=== PATIENT | male | born 1950 | race Caucasian/White ===

== ENCOUNTER 2017-08-07 08:58 | Day surgery (SDC) | payer BC, OTHER ==
[~2017-08-07] VITALS: Ht 182.9 cm; Wt 72.6 kg
--- NOTE | ~2017-08-07 | OR ---
[facility] [address], [place] [address] Draft DATE OF OPERATION: 08/07/2017 SURGEON: Pablo Sarmiento MD PREOPERATIVE DIAGNOSIS: Left ear recurrent cancer. POSTOPERATIVE DIAGNOSIS: Left ear recurrent cancer. PROCEDURE: Excision of left ear lesions x2. ANESTHESIA: Local. 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 This was excised 10 years ago and again earlier this year, he has had recurrent lesion in this area and he was taken to the operating room for the above-mentioned procedure. OPERATIVE PROCEDURE AND FINDINGS: After informed consent, the patient was taken to the operating room, placed in the semi-sitting position, where monitoring was performed. The patient and procedure were verified. The left ear was sterilely prepped and draped. Examination of the vivian showed 2 ulcerated reddish lesions, one was in the medial portion of the vivian near the medial portion of the previous excision site, right near the opening of the ear canal inferior margin. This measured about a centimeter. There was also a second lesion out on the vivian more laterally and inferior to the previous excision site. This was again reddish, ulcerated, about a centimeter in diameter. The lesions were anesthetized with 1% lidocaine with epinephrine injection. The lesions were excised with elliptical pattern, a millimeter or 2 margins. The first one was labeled the ear canal. It was sent to pathology in formalin. The second was labeled vivian, again elliptical with a millimeter or 2 margins, sent to pathology in formalin. Hemostasis was obtained with needle point cautery. The wounds were closed after elevation of the edges, primarily with 5-0 interrupted nylon. The skin was cleansed. Neosporin was applied. The patient was then transported back to same-day surgery in good condition. COMPLICATIONS: PATIENT NAME: RAVIN GARDINER OPERATIVE REPORT DATE OF : 46 PHYSICIAN: PABLO SARMIENTO MD REPORT #: [id number] REPORT IS CONFIDENTIAL AND NOT TO BE RELEASED WITHOUT AUTHORIZATION [address], [place] [address] Draft No complications. BLOOD LOSS: Minimal. SPECIMEN: X2 to pathology. DRAINS: No drains. Pablo Sarmiento MD GC/MODL /[id number] PATIENT NAME: RAVIN GARDINER OPERATIVE REPORT DATE OF : 46 PHYSICIAN: PABLO SARMIENTO MD REPORT #: [id number] REPORT IS CONFIDENTIAL AND NOT TO BE RELEASED WITHOUT AUTHORIZATION
[~2017-08-07 08:58] MED LIST: ADVIL200 MG PO; ASPIR-LOW81 MG PO
--- NOTE | 2017-08-07 10:38 | NUR ---
PT RETURNED STRAIGHT FROM OR. PT DENIES PAIN AND NAUSEA. LOCAL ANESTHESIA ONLY, PT TOLERATING PO FLUIDS AND FOOD, DISCHAGE ORDER IN PLACE. BED RAILS UP. CALL LIGHT WITHIN REACH.
--- NOTE | 2017-08-07 11:15 | NUR ---
PT TOLERATING PO FOOD AND FLUID. PT AMBULATES WITHOUT DIFFICULT. PT REPORTING 0/10 PAIN AND DENIES NAUSEA. DISCHAGE INSTURCTIONS REVIEWED WITH PT. PT VERBALIZES UNDERSTANDING OF DISCHARGE INSTRUCTIONS. PT WALKS SELF FROM UNIT.
== END 2017-08-07 11:15 | disposition home or self-care (01) ==
LOC: DS 08:58 → OPS 08:58 → DS 11:00 → OPS 11:00
PROVIDERS: Otolaryngology
PROC: 09B Ear, Nose, Sinus, Excision (ICD-10-PCS; principal; 2017-08-07 11:00)
DX: C44.219 Basal cell carcinoma of skin of left ear and external auricular canal (principal); J30.9 Allergic rhinitis, unspecified; Z98.890 Other specified postprocedural states

== ENCOUNTER 2020-04-13 07:21 | Day surgery (SDC) | payer BC ==
[~2020-04-13] VITALS: Ht 182.9 cm; Wt 72.6 kg
--- NOTE | ~2020-04-13 | OR ---
[facility] [address] [place], [place] [address] Draft DATE OF OPERATION: 04/13/2020 SURGEON: Corrine Sarmiento MD PREOPERATIVE DIAGNOSIS: Left ear lesion. POSTOPERATIVE DIAGNOSIS: Left ear lesion. PROCEDURE: Excision of left ear lesion. ANESTHESIA: Local. PREOPERATIVE HISTORY: Mr. 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 He has had recurrence, treated with liquid nitrogen in the office. Persistent lesion has presented and he is being taken to the operating room for the above-mentioned procedures. PROCEDURE AND FINDINGS: After informed consent, the patient was taken to the operating room, placed in the semi-sitting position, where monitoring was performed. The patient and procedure verified. The left ear and neck were sterilely prepped and draped. Exam of the left ear showed a lesion superficially ulcerated reddish in the vivian and then a 2nd lesion upon the posterior surface of the tragus. After sterile prep and drape, 1% lidocaine with epi was injected in a field type block. Two separate lesions were excised separately in elliptical pattern, first in the vivian was labeled the posterior lesion, appeared to be completely excised and sent to pathology in formalin and that lesion was about 2 cm in length. The second lesion was on the posterior surface of the tragus, this was also about 2 cm, was excised in elliptical manner, anterior portion was excised separately as the tissue tore during resection. The suture was placed in the anterior margin of the anterior lesion posterior portion. Bleeding was minimal, controlled with needle point cautery. Hemostasis was verified. The lesions were then closed separately with 5-0 interrupted nylon. The skin was cleansed. Neosporin was applied. The patient was then transported back to same day in good condition. BLOOD LOSS: PATIENT NAME: TORO GARDINER OPERATIVE REPORT DATE OF : 46 REPORT #: [id number] PHYSICIAN: CORRINE SARMIENTO MD PCP: NO PRIMARY CARE PHYSICIAN REPORT IS CONFIDENTIAL AND NOT TO BE RELEASED WITHOUT AUTHORIZATION [address] [address] [facility] Minimal. SPECIMENS: 1. Posterior left ear. 2. Anterior left ear. 3. Anterior portion of anterior left ear. DRAINS: No drains. COMPLICATIONS: No complications. Corrine Sarmiento MD GC/MODL /[id number] Copies: ~ PATIENT NAME: TORO GARDINER OPERATIVE REPORT DATE OF : 46 REPORT #: [id number] PHYSICIAN: CORRINE SARMIENTO MD PCP: NO PRIMARY CARE PHYSICIAN REPORT IS CONFIDENTIAL AND NOT TO BE RELEASED WITHOUT AUTHORIZATION
--- NOTE | 2020-04-15 11:06 | PATH ---
[facility] [address], [place] [address] Signed SPECIMEN(S): A POSTERIOR LEFT EAR SPECIMEN(S): B ANTERIOR LEFT EAR SPECIMEN(S): C ANTERIOR ANTERIOR LEFT EAR SPECIMEN SOURCE: A. POSTERIOR LEFT EAR B. ANTERIOR LEFT EAR C. ANTERIOR ANTERIOR LEFT EAR CLINICAL HISTORY: Lesion left ear, probable basal cell carcinoma. Excision left ear lesion. FINAL PATHOLOGIC DIAGNOSIS: A. Skin, posterior left ear, biopsy: - Nodular basal cell carcinoma. - Margins of excision free of neoplasm. - Closest margin of excision is lateral, within less than 0.1 cm. B. Skin, anterior left ear, excision: - Nodular basal cell carcinoma. - Tumor size 0.4 x 0.4 x 0.1 (l x w x d). - Carcinoma present at both anterior and posterior margins. C. Skin, "anterior anterior left ear", biopsy: - Nodular basal cell carcinoma. - Carcinoma present at lateral tissue edge. LJA:cml:C1NR MICROSCOPIC EXAMINATION: Histologic sections of all submitted blocks are examined by light microscopy. These findings, together with the gross examination, support the pathologic diagnosis. GROSS DESCRIPTION: Three specimens are received in three containers, labeled "FM." A. The specimen, labeled "FM, A," and designated on the requisition "posterior left ear lesion," is received in formalin and consists of an unoriented elliptical skin fragment measuring 1.1 x 0.4 x 0.2 cm. The cutaneous surface is jiang and smooth with a 0.2 x 0.1 cm central depressed jiang lesion measuring 0.1 cm to the nearest margin. The specimen is inked, quadrisected, and entirely submitted in cassette A1. B. The specimen, labeled "FM, B," and designated on the requisition "anterior PATIENT NAME: TORO GARDINER PATHOLOGY DATE OF : 46 REPORT #: [id number] PHYSICIAN: ELIZABETH PATHOLOGY PCP: NO PRIMARY CARE PHYSICIAN REPORT IS CONFIDENTIAL AND NOT TO BE RELEASED WITHOUT AUTHORIZATION [facility] [address], [place] [address] Signed left ear lesion," is received in formalin and consists of a 0.9 x 0.7 x 0.2 cm oriented irregularly shaped skin ellipse. A suture is present and morataya the anterior margin, measures less than 0.1 cm to the nearest margin. The cutaneous surface contains a 0.4 x 0.3 cm hypopigmented lesion with partial crusted border measuring less than 0.1 cm from the sutured /designated anterior margin. The specimen is inked as follows: Anterior margin-blue; opposite margin-green; and deep margin-black. The specimen is quadrisected and entirely submitted sequentially in cassettes B1-B2. C. The specimen, labeled "FM, C," and designated on the requisition "anterior anterior left ear lesion," is received in formalin and consists of an unoriented jiang skin fragment measuring 0.5 x 0.3 x 0.3 cm. The cutaneous surface is jiang and smooth with off-center crusted area. Specimen is inked blue and entirely submitted in cassette C1. AT (under the direct supervision of a pathologist) The Gross Description was prepared using a voice recognition system. The report was reviewed for accuracy; however, sound-alike word errors, addition and/or deletions may occur. If there is any question about this report, please contact Client Services. PERFORMING LABORATORY: The technical component was performed by [employer], [address] [place] [id number] (Sewing Machine Attachment Tester: Telma Davila MD; CLIA# [id number]). Professional interpretation was performed by [employer], [facility], [address] [place] [address] (CLIA# [id number]). Diagnostician: Chris Eli MD Pathologist Diagnostician: Estella Prado MD Pathologist Electronically Signed 04/15/2020 Copies: ~ PATIENT NAME: TORO GARDINER PATHOLOGY DATE OF : 46 REPORT #: [id number] PHYSICIAN: [facility] PCP: NO PRIMARY CARE PHYSICIAN REPORT IS CONFIDENTIAL AND NOT TO BE RELEASED WITHOUT AUTHORIZATION
== END 2020-04-13 18:00 | disposition home or self-care (01) ==
LOC: DS 07:21 → OPS 07:21 → DS 10:00 → OPS 10:00
PROVIDERS: Otolaryngology
PROC: 0HB3XZZ Excision of Left Ear Skin, External Approach (ICD-10-PCS; principal; 2020-04-13 09:00)
DX: C44.219 Basal cell carcinoma of skin of left ear and external auricular canal (principal)

== ENCOUNTER 2021-02-08 08:55 | Day surgery (SDC) | payer BC, SELFPAY ==
[~2021-02-08] VITALS: Ht 182.9 cm; Wt 74.0 kg
--- NOTE | 2021-02-08 11:23 | NUR ---
PATIENT INSTRUCTED ON WOUND CARE, SIGNS AND SYMPTOMS OF INFECTION TO LEFT EAR INCISION. PATIENT VERBALIZED UNDERSTANDING OF ALL DISCHARGE INSTRUCTIONS AND FOLLOW UP APPOINTMENT WITH DR. WINSLOW.
--- NOTE | 2021-02-15 11:16 | OR ---
[facility] [address] [place], [place] [address] Signed DATE OF OPERATION: 02/08/2021 SURGEON: Pablo Sarmiento MD PREOPERATIVE DIAGNOSIS: Left ear lesion. POSTOPERATIVE DIAGNOSIS: Left ear lesion. PROCEDURE: Excision of left ear lesions. ANESTHESIA: Local. PREOPERATIVE HISTORY: Ravin is a 70-year-old man with history of left ear basal cell carcinoma in the past. He has several suspicious lesions which have recurred adjacent to the original excision site in the vivian and the retrotragal skin of the left ear. He has had these areas frozen several times in the office. The area has recurred with superficial ulceration, inflammation, and he is taken to the operating room for the above-mentioned procedures. OPERATIVE PROCEDURE AND FINDINGS: After informed consent, the patient was taken to the operating room, kept in his same-day gurney semi-sitting. Left ear was sterilely prepped and draped. The patient and procedure verified. The lesion in question. There were two lesions on the left ear, one on the posterior surface of the tragus measuring about a cm, this was superficially ulcerated, inflamed, reddish tissue. There was a smaller lesion in the posterior portion of the vivian measuring several mm. After sterile prep and drape, the injection was with 1% lidocaine with epi in a field type block, the 1st lesion post-tragal was excised with an elliptical excision measuring about 15 mm. The lesion was sent to pathology in formalin. The lesion appeared to be superficial not involving underlying cartilage. Some of the cartilage was excised to allow for ease of closure. Wound edges were elevated. The closure was then with 5-0 interrupted nylon. The 2nd lesion was excised sharply, measured about a cm in greatest diameter, the lesion was sent in formalin to pathology. The wound was closed with 5-0 interrupted nylon. The skin was cleansed, Neosporin ointment was applied. The patient was then transported back to same day in [facility] condition. No complications. Electronically Signed By: PABLO SARMIENTO MD 02/15/21 1116 PATIENT NAME: RAVIN GARDINER OPERATIVE REPORT DATE OF : 46 REPORT #: [id number] PHYSICIAN: PABLO SARMIENTO MD PCP: OTHER PCP REPORT IS CONFIDENTIAL AND NOT TO BE RELEASED WITHOUT AUTHORIZATION [address] [address] Signed BLOOD LOSS: Minimal. SPECIMEN: X2, left ear to pathology; first labeled, retrotragal and second was vivian. DRAINS: No drains. COMPLICATIONS: No complications. Pablo Sarmiento MD GC/MODL /[id number] Copies: ~ Electronically Signed By: PABLO SARMIENTO MD 02/15/21 1116 PATIENT NAME: RAVIN GARDINER OPERATIVE REPORT DATE OF : 46 REPORT #: [id number] PHYSICIAN: PABLO SARMIENTO MD PCP: OTHER PCP REPORT IS CONFIDENTIAL AND NOT TO BE RELEASED WITHOUT AUTHORIZATION
== END 2021-02-08 11:16 | disposition home or self-care (01) ==
LOC: DS 08:55
PROVIDERS: ATTEND Otolaryngology
PROC: 0HB3XZZ Excision of Left Ear Skin, External Approach (ICD-10-PCS; principal; 2021-02-08 11:00)
DX: C44.219 Basal cell carcinoma of skin of left ear and external auricular canal (principal)

== ENCOUNTER 2022-03-28 08:53 | Day surgery (SDC) | payer BC ==
[~2022-03-28] VITALS: Ht 182.9 cm; Wt 74.0 kg
--- NOTE | ~2022-03-28 | OR ---
[facility] [address], [place] [address] Draft DATE OF OPERATION: 03/28/2022 SURGEON: Pablo Sarmiento MD PREOPERATIVE DIAGNOSIS: Recurrent left ear skin cancer. POSTOPERATIVE DIAGNOSIS: Recurrent left ear skin cancer. PROCEDURE: Excision of left ear lesion x2. ANESTHESIA: Local standby. PREOPERATIVE HISTORY: Ravin is a 71-year-old man with a history of left ear cancer skin cancer. He has had multiple excisions mainly in the vivian. Recurrent areas have been treated in the office with freezing. He has one area today that has not responded and has been an obvious recurrence of basal cell carcinoma and he is taken to the operating room for the above-mentioned procedures. PROCEDURE AND FINDINGS: After informed consent, the patient was taken to the operating room, placed in the semi-sitting position. Monitoring was performed. The left ear was sterilely prepped and draped. Exam of the ear showed crusted lesion on the left vivian just on the posterior surface of the tragus. There was also a granular lesion in the bowl of the vivian posterior to this, which was suspicious. 1% lidocaine with epinephrine was injected in a field type block. The two separate lesions were removed separately. The posterior lesion was removed with sharp dissection with a mm margin. This was sent in formalin to pathology labeled posterior conchal left ear lesion. The excision site was about 5 mm. Hemostasis was obtained with needlepoint cautery. This wound was left open. The second lesion more anterior than the first was basically on the posterior surface of the tragus, it measured about a cm crusted. This lesion was also excised sharply with a millimeter or two margins in an elliptical pattern. A suture was placed to the anterior edge and this was sent in formalin as separate specimen labeled anterior left conchal left ear lesion. Hemostasis was obtained with needle point cautery. The wound was PATIENT NAME: RAVIN GARDINER OPERATIVE REPORT DATE OF : 46 REPORT #: [id number] PHYSICIAN: PABLO SARMIENTO MD PCP: OTHER PCP REPORT IS CONFIDENTIAL AND NOT TO BE RELEASED WITHOUT AUTHORIZATION [facility] [address] [place], [place] [address] Draft closed with 5-0 interrupted nylon. Neosporin was applied. Half-inch Nu Gauze. The patient was then transported back to same day in good condition. No complications. BLOOD LOSS: Minimal. SPECIMENS: To pathology. DRAINS: None. Pablo Sarmiento MD GC/MODL /[id number] Copies: ~ PATIENT NAME: RAVIN GARDINERN OPERATIVE REPORT DATE OF : 46 REPORT #: [id number] PHYSICIAN: PABLO SARMIENTO MD PCP: OTHER PCP REPORT IS CONFIDENTIAL AND NOT TO BE RELEASED WITHOUT AUTHORIZATION
--- NOTE | 2022-03-29 15:30 | PATH ---
[facility] [address] [place], [place] [address] Signed SPECIMEN(S): A LEFT EAR LESION POSTERIOR SPECIMEN(S): B LEFT EAR LESION ANTERIOR SPECIMEN SOURCE: A. LEFT EAR LESION POSTERIOR B. LEFT EAR LESION ANTERIOR CLINICAL HISTORY: Left ear lesion. Stitch in anterior side. FINAL PATHOLOGIC DIAGNOSIS: A. Left ear, posterior: - Basal cell carcinoma, nodular cystic type. - This carcinoma extends to a peripheral edge of the specimen. - The deep margin is free of carcinoma. B. Left ear, anterior: - Basal cell carcinoma, nodular type, ulcerated. - The carcinoma extends to the deep margin and to a peripheral margin of the 12 o'clock half. TWK:em:C1NR MICROSCOPIC EXAMINATION: Histologic sections of all submitted blocks are examined by light microscopy. These findings, together with the gross examination, support the pathologic diagnosis. GROSS DESCRIPTION: Two specimens are received in two containers, labeled "FM." A. The specimen, labeled "FM, left ear lesion posterior," is received in formalin and consists of one irregular shaped skin tissue fragment that measures 0.4 x 0.3 x 0.1 cm. Skin is pink-jiang, smooth. Specimen is inked and dissected. Specimen is entirely submitted in cassette (A1). B. The specimen, labeled "FM, left ear lesion anterior," is received in formalin and consists of skin tissue fragment that measures 0.7 x 0.6 cm. The skin surface is pink-jiang, slightly roughed. Specimen is oriented with a stitch as anterior. The stitch is arbitrarily designated 12 o'clock. Specimen is inked: 12-6-black, 6-12-blue. Specimen is sectioned and entirely submitted in two cassettes. Cassette summary: PATIENT NAME: TORO GARDINER PATHOLOGY DATE OF : 46 REPORT #: [id number] PHYSICIAN: ELIZABETH MCMILLAN PCP: OTHER PCP REPORT IS CONFIDENTIAL AND NOT TO BE RELEASED WITHOUT AUTHORIZATION [facility] [address] [facility] [place], [place] [address] Signed (A1) 12 o'clock half (A2) 6 o'clock half. JS (under the direct supervision of a pathologist) The Gross Description was prepared using a voice recognition system. The report was reviewed for accuracy; however, sound-alike word errors, addition and/or deletions may occur. If there is any question about this report, please contact Client Services. PERFORMING LABORATORY: The technical component was performed by [employer], [address] [place] [address] (CLIA# [id number]). The professional interpretation was performed by [facility], [facility], [address] [place] [address] (CLIA#: [id number]). Diagnostician: Joshua Todd MD Pathologist Electronically Signed 03/29/2022 Copies: ~ PATIENT NAME: ABDIFATAH,TORO ALMA PATHOLOGY DATE OF : 46 REPORT #: [id number] PHYSICIAN: ELIZABETH MCMILLAN PCP: OTHER PCP REPORT IS CONFIDENTIAL AND NOT TO BE RELEASED WITHOUT AUTHORIZATION
== END 2022-03-28 18:00 | disposition home or self-care (01) ==
LOC: OPS 08:53 → DS 08:53 → OPS 10:00
PROVIDERS: ATTEND Otolaryngology
PROC: 0HB3XZX Excision of Left Ear Skin, External Approach, Diagnostic (ICD-10-PCS; principal; 2022-03-28 10:00)
DX: C44.219 Basal cell carcinoma of skin of left ear and external auricular canal (principal)

== ENCOUNTER 2025-04-14 07:11 | Day surgery (SDC) | payer OTHER ==
[2025-03-30 13:24] VITALS: BP 147/70
[~2025-04-14] VITALS: Ht 182.9 cm; Wt 70.0 kg
[~2025-04-14 07:11] MED LIST changes: +ACETAMINOPHEN500 MG PO; +IBLOOD GLUCOSE TEST STRIP 1 EA TEST VI PRN; +LACTATED RINGER'S 1,000 ML IV SCH; +LIDOCAINE HCL 1% 5 ML SDV INJ ONE; +SEVOFLURANE 250 ML BTL INH ONE
[2025-04-14] MEDS ORDERED: LIDOCAINE 1% W/ EPI 1:100,000 20 ML MDV ONE (07:23)
[2025-04-14 07:34] VITALS: BP 163/74
--- NOTE | 2025-04-14 07:38 | NUR ---
PT NOT AVAILABLE FOR VISIT. PROVIDED PRAYER.
[2025-04-14] MEDS ORDERED: fentaNYL citrate 100 MCG/2 ML VIAL ONE (08:57)
[2025-04-14] MEDS ORDERED: DEXAMETHASONE SOD PHOS 4 MG/ML VIAL ONE (08:57)
[2025-04-14] MEDS ORDERED: LIDOCAINE HCL 2% 5 ML SDV ONE (08:57)
[2025-04-14] MEDS ORDERED: IBLOOD GLUCOSE TEST STRIP 1 EA TEST VI PRN (10:00)
[2025-04-14] MEDS ORDERED: KETOROLAC TROMETHAMINE 30 MG/ML VIAL IV PRN (10:00)
[2025-04-14] MEDS ORDERED: fentaNYL citrate 50 MCG/ML SDV IV PRN (10:00)
[2025-04-14] MEDS ORDERED: NALOXONE HCL 0.4 MG SYR IV PRN (10:00)
--- NOTE | 2025-04-14 10:26 | NUR ---
04/14/25 1026 Mariama Quiroga LE 1013: PT ARRIVES TO PACU ASLEEP, BUT REACTIVE TO TACTILE STIMULI. HE ATTEMPTS TO SCRATCH HIS LEFT EAR AND NECK, 2ND BUSINESS SERVICES COORDINATOR PREVENTS HIM FROM DOING SO. 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 LE 1020: PT DENIES HAVING ANY PAIN AT THIS TIME. HE IS GIVEN FRESH WARM BLANKETS.
[2025-04-14 10:48] VITALS: BP 142/56
--- NOTE | 2025-04-14 10:53 | NUR ---
1043 PT RETURNS TO DS FROM PACU AWAKE AND ALERT DENIES PAIN AND NAUSEA. PT TAKING SIPS OF WATER AND EATING APPLE SAUCE. WARM BLANKETS PLACED ON PT. CALL LIGHT WITHIN REACH. PT RESTING COMFORTABLY
[2025-04-14 11:45] VITALS: BP 146/66
--- NOTE | 2025-04-14 12:17 | NUR ---
1145 DISCHARGE INSTRUCTIONS GIVEN TO PT HE VOICED UNDERSTANDING. PT UP TO BATHROOM HE AMBULATES WITHOUT ASSIST PT ABLE TO VOID A GOOD AMOUNT OF CLEAR YELLOW URINE. PT ABLE TO DRESS HIMSELF.
--- NOTE | 2025-04-16 14:22 | PATH ---
[facility] [address] [place], [place] [address] Signed SPECIMEN(S): A LEFT EAR TRAGUS LESION SPECIMEN(S): B LEFT EAR CONCHAL LESION SPECIMEN SOURCE: A. LEFT EAR TRAGUS LESION B. LEFT EAR CONCHAL LESION CLINICAL HISTORY: Left ear lesions FINAL PATHOLOGIC DIAGNOSIS: A. Skin, left ear tragus lesion: - Basal cell carcinoma, nodular-type, present at multiple surgical margins. - Tumor extends to the 9-12-3 o'clock margins. - It is focally also present at a 6-9 o'clock quadrant margin as well (tip). B. Skin, left ear conchal lesion: - Basal cell carcinoma, nodular-type, focally transected at a blue-inked (6-9 o'clock quadrant) surgical margin. - All other margins appear free of tumor on these sections. JVR:smn MICROSCOPIC EXAMINATION: Histologic sections of all submitted blocks are examined by light microscopy. These findings, together with the gross examination, support the pathologic diagnosis. GROSS DESCRIPTION: A. The specimen, labeled and designated "Claudette Raya, left ear tragal lesion" per requisition, is received in formalin and consists of a 1.2 x 0.7 cm portion of skin excised to a depth of 0.2 cm. There is a stitch indicating the superior margin which is subsequently designated 12:00. The skin is jiang with a central 0.9 x 0.4 cm brown scabbed lesion that is 0.1 cm away from the 9:00 margin, 0.1 cm away from the 6:00 margin, 0.2 cm away from the 3:00 margin, and 0.3 cm away from the 12:00 margin. The specimen is subsequently inked as follows: 3-6 o'clock orange, 6-9 o'clock blue, 9-12-3 o'clock black. Specimen is serially sectioned revealing no additional masses or lesions. Specimen is entirely submitted as follows: Cassette Summary: (A1) distal tips, 3 and 9 o'clock (A2) remainder of skin PATIENT NAME: TORO RAYA ALMA PATHOLOGY DATE OF : 46 REPORT #: [id number] PHYSICIAN: ELIZABETH MCMILLAN PCP: OTHER PCP REPORT IS CONFIDENTIAL AND NOT TO BE RELEASED WITHOUT AUTHORIZATION [facility] [address] [place], [place] [address] Signed B. The specimen, labeled and designated "Claudette Raya, left ear conchal lesion" per requisition, is received in formalin and consists of a 1.4 x 1.1 cm portion of skin excised to a depth of 0.4 cm. There is a stitch indicating the superior margin which is subsequently designated 12:00. The skin is jiang with a central 0.7 x 0.4 cm ulcerative lesion that is 0.3 cm away from 12:00, 0.3 cm away from 6:00, 0.4 cm away from 3 and 9:00. The specimen is subsequently inked as follows: 3-6 o'clock orange, 6-9 o'clock blue, 9-12-3 o'clock black. The specimen is serially sectioned revealing no additional masses or lesions. The specimen is entirely submitted as follows: Cassette Summary: (B1) distal tips, 3 and 9:00 (B2) remainder of skin AA (under the direct supervision of a pathologist) The Gross Description was prepared using a voice recognition system. The report was reviewed for accuracy; however, sound-alike word errors, addition and/or deletions may occur. If there is any question about this report, please contact Client Services. PERFORMING LABORATORY: Technical component was performed by [employer], [address] [place] [id number] (CLIA# [id number]). Professional interpretation was performed by [facility] - [facility], [address] [place] [id number] (CLIA#: [id number]). Diagnostician: Kole Nelson MD Pathologist Electronically Signed 04/16/2025 Copies: ~ PATIENT NAME: TORO RAYA ALMA PATHOLOGY DATE OF : 46 REPORT #: [id number] PHYSICIAN: ELIZABETH MCMILLAN PCP: OTHER PCP REPORT IS CONFIDENTIAL AND NOT TO BE RELEASED WITHOUT AUTHORIZATION
--- NOTE | 2025-04-21 10:48 | OR ---
[facility] [address], [place] [address] Signed DATE OF OPERATION: 04/14/2025 SURGEON: Pablo Sarmiento MD PREOPERATIVE DIAGNOSIS: Left ear skin cancer x2. POSTOPERATIVE DIAGNOSIS: Left ear skin cancer x2. PROCEDURE: Excision of left ear skin cancer two lesions with a full-thickness skin graft repair. ANESTHESIA: General LMA; Rojelio COLON. PREOPERATIVE HISTORY: Ravin is a 74-year-old man with a history of left ear skin cancers, these have been removed in the past, multiple excisions with recurrences, multiple treatments in the office with freezing, etc. Two lesions have persisted one in the vivian left ear and one in the retrotracheal skin, left ear. He was taken to the operating room for the above-mentioned procedures. OPERATIVE PROCEDURE AND FINDINGS: After informed consent, the patient was taken to the operating room, placed in supine position where general LMA anesthesia was induced. The patient and procedure were verified. Head was turned to the right. This left ear and neck were sterilely prepped and draped. The lesion in question was in the left ear in the vivian. Ulcerated lesion measuring about 15 mm in the inferior vivian and then a second lesion behind the tragus. Left ear measuring about a cm, again ulcerated, crusted. After sterile prep and drape, the lesions in question were marked with a marking pencil with a mm to margins for excision. 1% lidocaine with epinephrine was injected around both lesions. The lesions were then excised sharply with a portion of deep cartilage included in the excision. The retrotragal lesion was marked with nylon suture in the superior margin and this was sent to Pathology. The vivian lesion also marked with a nylon suture in the superior margin and sent to Pathology separately. The tragal lesion measured about a cm in greatest diameter and the vivian lesion measured about 2 cm. Hemostasis was obtained with needle point cautery. Full-thickness skin graft was then taken from the left neck about a 3 cm length, 2 cm width area was marked along a skin crease in the anterior-posterior direction. The area was anesthetized with 1% lidocaine with Electronically Signed By: PABLO SARMIENTO MD 04/21/25 1048 PATIENT NAME: RAVIN GARDINER ALMA OPERATIVE REPORT DATE OF : 46 REPORT #: [id number] PHYSICIAN: PABLO SARMIENTO MD PCP: OTHER PCP REPORT IS CONFIDENTIAL AND NOT TO BE RELEASED WITHOUT AUTHORIZATION [facility] [address], [place] [address] Signed epinephrine. The graft was then taken. Skin edges elevated upper and lower for a tension-free closure. Hemostasis obtained with needle point cautery and the wound was closed with 4-0 interrupted Vicryl subcu and thais in the skin. The full-thickness graft was then thinned, defatted basically cut in half in two portions, one portion each for each excision site in the left ear. The skin grafts were sutured into place with 5-0 interrupted Vicryl around the edges. The vivian lesion was bolstered with Adaptic, cotton ball was not impregnated with mineral oil and the sutures tied over to make a bolster. The tragal lesion skin graft set nicely, did not require a bolster. The cotton ball was placed in the vivian and the patient was then awakened, extubated, transported to recovery room in good condition. No complications. BLOOD LOSS: Minimal. SPECIMENS: To Pathology 1. A posterior tragal lesion. 2. Vivian lesion for permanent sections. No drains. Pablo Sarmiento MD GC/MODL /[id number] Copies: ~ Electronically Signed By: PABLO SARMIENTO MD 04/21/25 1048 PATIENT NAME: RAVIN GARDINER ALMA OPERATIVE REPORT DATE OF : 46 REPORT #: [id number] PHYSICIAN: PABLO SARMIENTO MD PCP: OTHER PCP REPORT IS CONFIDENTIAL AND NOT TO BE RELEASED WITHOUT AUTHORIZATION
== END 2025-04-14 12:00 | disposition home or self-care (01) ==
LOC: DS 07:11 → OPS 07:11
PROVIDERS: ATTEND Otolaryngology
PROC: 0HR2X73 Replacement of Right Ear Skin with Autologous Tissue Substitute, Full Thickness, External Approach (ICD-10-PCS; principal; 2025-04-14 09:00)
DX: C44.219 Basal cell carcinoma of skin of left ear and external auricular canal (principal)
CPT/HCPCS: 00300; 88305; J1100; J2003; J2405; J2704; J3010